=== PATIENT | female | born 1965 | race Caucasian/White ===

== ENCOUNTER 2017-01-04 07:46 | Day surgery (SDC) | payer MEDICARE ==
[2017-01-04] MEDS ORDERED: MS CONTIN30 MG PO (08:48)
[2017-01-04] MEDS ORDERED: ROBAXIN500 MG PO (08:48)
[2017-01-04] MEDS ORDERED: NOVOLOG100 U/M1 SC (08:49)
[2017-01-04] MEDS ORDERED: LANTUS INSULIN10 ML SC (08:49)
[2017-01-04] MEDS ORDERED: VICTOZA0.6 MG/0.1 SQ (08:50)
[2017-01-04] MEDS ORDERED: CARAFATE1 G PO (08:51)
[2017-01-04] MEDS ORDERED: LEVOTHYROXINE100 MCG PO (08:51)
[2017-01-04] MEDS ORDERED: GEMFIBROZIL600 MG PO (08:51)
[2017-01-04] MEDS ORDERED: FUROSEMIDE40 MG PO (08:52)
[2017-01-04] MEDS ORDERED: GLUCOPHAGE500 MG PO (08:52)
[2017-01-04] MEDS ORDERED: ZOCOR40 MG PO (08:53)
[2017-01-04] MEDS ORDERED: ALTACE10 MG PO (08:53)
[2017-01-04 08:55] VITALS: BP 127/71; BMI 52.5
[2017-01-04] MEDS ORDERED: ADIPEX-P37.5 M1 PO (09:02)
[2017-01-04] MEDS ORDERED: OMEPRAZOLE20 M1 PO (09:02)
[2017-01-04 09:11] LABS: BASOPHILS 0.2 % (0-2); EOSINOPHILS 2.4 % (0-7); HEMATOCRIT 32.9 % (36.0-48.0); HEMOGLOBIN 10.3 g/dL (12-16); IMMATURE GRANULOCYTES 0.3 % (0-5); LYMPHOCYTES 30.2 % (15-50); MCH 25.1 pg (26.0-34.0); MCHC 31.3 g/dL (31.0-37.0); MCV 80.2 fL (80.0-100.0); MONOCYTES 6.4 % (2-11); NEUTROPHILS 60.5 % (40-80); PLATELET COUNT 417 10x3/uL (130-400); RDW 15.8 % (11.5-14.5); WBC 9.1 10x3/uL (4.8-10.8)
[2017-01-04 09:25] LABS: CALC OSMOLALITY 282 mosm/kg (275-300); CALCIUM 9.5 mg/dL (8.5-10.1); CARBON DIOXIDE 28.2 mmol/L (21.0-32.0); CHLORIDE - SERUM 104 mmol/L (98-107); CREATININE - SERUM 0.6 mg/dL (0.6-1.3); POTASSIUM - SERUM 3.4 mmol/L (3.5-5.1); SODIUM 140 mmol/L (136-145); UREA NITROGEN 16 mg/dL (7-18); eGFR NON AFRICAN AMERICAN > 90 mL/min (90-120)
[2017-01-04 09:26] LABS: GLUCOSE 149 mg/dL (74-106)
--- NOTE | 2017-01-04 10:14 | NUR ---
TALKED WITH DR. VALENZUELA HAS A ESSURE DEVICE NOT NEEDING A TEST.
[2017-01-04 10:30] LABS: HCG SERUM NEGATIVE (NEGATIVE)
--- NOTE | 2017-01-04 11:03 | NUR ---
1045- PT BACK TO ROOM, LL POSITION. CARRYING ON A CONVERSATION WITHOUT DIFFICULTY. FULL LIQUIDS OFFERED. VSS. 1100- TOLERATING FULL LIQUIDS. SITTING UP WITH HOB ELEVATED. WILL MONITOR.
--- NOTE | 2017-01-04 11:40 | NUR ---
1115- DR. BECKER AT BEDSIDE DISCUSSING PROCEDURAL FINDINGS. 1125-IV D/C'D, PT TOLERATED. CATHETER INTACT. 1135- DISCHARGE INSTRUCTIONS COMPLETED. PAPERWORK SIGNED. PT VERBALIZED UNDERSTANDING. 1140- PT DISCHARGED VIA WHEELCHAIR WITH SON.
--- NOTE | 2017-01-06 10:45 | OP ---
PATIENT NAME: RAVINDRA BERNABE MEDICAL RECORD: [id number] :69 LOCATION:[facility] ADMISSION DATE: SURGEON: SHELL BECKER MD DATE OF OPERATION: 01/04/2017 PROCEDURE: EGD with biopsy. REFERRING PHYSICIAN: Dr. Shoshana Cobb in [place]. SURGEON: Dr. Edilson Spencer in [place], [place]. INDICATIONS: Ms. Bernabe is a delightful 51-year-old woman with history of diabetes mellitus and delayed gastric emptying. She is scheduled for an upcoming gastric bypass (Dao-en-Y) in February. She has a history of short segment Don esophagitis. She presents for outpatient EGD. PREMEDICATIONS: Total IV anesthesia (propofol 250 mg), BMI of 54 and obstructive sleep apnea. INSTRUMENT: Yapmo video gastroscope. PROCEDURE AND FINDINGS: After receiving informed consent, Ms. Bernabe's posterior pharynx was anesthetized with Cetacaine spray. She was placed in left lateral decubitus position and sedated as per anesthesia. After achieving an adequate level of sedation, gastroscope was introduced per orally and advanced to the duodenum without difficulty. The esophageal mucosa was without erythema, was without ulcers or masses. The Z-line was irregular suggestive of early Don esophagitis and biopsies were taken from the distal third and GE junction of the esophagus. Small sliding type hiatal hernia was noted. Gastric mucosa was notable for mild prepyloric and antral erythema and the antral biopsies were obtained to rule out Helicobacter pylori. A few polyps were seen in the body and fundus of the stomach (measuring 0.3 cm in size) and were cold biopsied. No lesions were seen in the cardia. No retained food was seen in the stomach. Pylorus was patent and competent. Duodenal mucosa was without erythema or ulcers, appeared normal through the second portion. Biopsies were taken from the second portion of duodenum to rule out celiac disease. Gastroscope was then withdrawn. Ms. Bernabe tolerated the procedure well, no immediate complications. ASSESSMENT: 1. 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 2. Small sliding type hiatal hernia. 3. Mild gastritis. 4. Small gastric polyps. RECOMMENDATIONS: 1. Follow up histopathology. 2. Discontinue omeprazole. 3. Discontinue Carafate. 4. Zantac 300 mg p.o. daily. TRANSINT:[id number] Voice Confirmation ID: [id number] DOCUMENT ID: [id number] OPERATIVE REPORT [id number] RAVINDRA BERNABE TERRI MD at 1045 CC: SHOSHANA COBB MD and EDILSON SPENCER MD [id number] DICTATION DATE: 01/04/17 1045 [facility] INTERN: 01/04/17 1242 [facility] 01/04/17 [place] [id number]
== END 2017-01-04 11:40 | disposition home or self-care (01) ==
LOC: D.OPS 07:46
PROVIDERS: Anesthesiology; Internal Medicine Gastroenterology
DX: K44.9 Diaphragmatic hernia without obstruction or gangrene (principal); K29.70 Gastritis, unspecified, without bleeding; K31.7 Polyp of stomach and duodenum; G47.30 Sleep apnea, unspecified; K21.9 Gastro-esophageal reflux disease without esophagitis; E11.9 Type 2 diabetes mellitus without complications; E03.9 Hypothyroidism, unspecified; E66.01 Morbid (severe) obesity due to excess calories; Z68.43 Body mass index [BMI] 50.0-59.9, adult; Z01.818 Encounter for other preprocedural examination; Z01.812 Encounter for preprocedural laboratory examination